=== PATIENT | female | born 1980 | race Caucasian/White ===

== ENCOUNTER 2019-02-09 00:44 | Emergency (ER) | payer SELFPAY ==
[~2019-02-09] VITALS: Ht 162.6 cm; Wt 59.4 kg
--- NOTE | 2019-02-09 00:47 | NUR ---
TO BED 1 BIB EMS C/O ABDOMINAL PAIN AND FEVER X5 HOURS. 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 PT AAOX4 NO ACUTE DISTRESS NOTED, RESP EVEN AND UNLABORED. URINE SAMPLE COLLECTED AND SENT TO LAB. PLACE PT ON CARDIAC MONITORING, CONTINMUOUS POX, O2@2L/NC. PENDING ER MD HANNON.
[2019-02-09] MEDS ORDERED: ONDANSETRON HCL/PF 4 MG/2 ML VIAL ONE (00:59)
[2019-02-09] MEDS ORDERED: MORPHINE SULFATE INJ 4 MG/ML DISP.SYRIN ONE (00:59)
[2019-02-09] MEDS ORDERED: MORPHINE SULFATE INJ 2 MG/ML DISP.SYRIN IV ONE (01:00)
[2019-02-09] MEDS ORDERED: IV NS 0.9% 500 ML BAG IV ONE (01:00)
[2019-02-09] MEDS ORDERED: ONDANSETRON HCL/PF 4 MG/2 ML VIAL IVP ONE (01:00)
[2019-02-09 01:02] LABS: APPEARANCE,URINE Clear (CLEAR); BILIRUBIN,URINE Negative (NEGATIVE); BLOOD, URINE Negative Ery/uL (NEGATIVE); COLOR,URINE Yellow (YELLOW); KETONES,URINE Negative (NEGATIVE); LEUKOCYTE ESTERASE ,URINE Trace (NEGATIVE); NITRITE, URINE Negative (NEGATIVE); PH,URINE 6.5 (5.0-8.0); PROTEIN,URINE Negative (NEGATIVE); UGLUCOSE Negative (NEGATIVE); UROBILINOGEN,URINE 0.2 EU/dL (0.2)
[2019-02-09] MEDS ORDERED: DICYCLOMINE HCL INJ 20 MG/2 ML AMPUL IM ONE ×2 (01:15→01:30)
--- NOTE | 2019-02-09 01:15 | NUR ---
PT MEDICATED ORDERED.
--- NOTE | 2019-02-09 01:18 | NUR ---
PT TRANSPORTED TO RADIOLOGY FOR CT ABD/PELVIS.
[2019-02-09 01:22] LABS: BASOPHILS % (AUTO) 0.5 % (0.0-2.0); EOSINOPHILS % (AUTO) 0.7 % (0.0-6.0); HEMATOCRIT 30 % (33-45); HEMOGLOBIN 9.8 g/dL (11.5-14.8); LYMPHOCYTES # (AUTO) 0.6 /CMM (0.8-4.8); LYMPHOCYTES % (AUTO) 14.1 % (20.0-44.0); MEAN CORPUSCULAR HGB CONC 33 g/dl (31.0-36.0); MEAN CORPUSCULAR VOLUME 75 fL (82-100); MONOCYTES # (AUTO) 0.3 /CMM (0.1-1.30); MONOCYTES % (AUTO) 6.6 % (2.0-12.0); NEUTROPHILS # (AUTO) 3.3 /CMM (1.8-8.9); NEUTROPHILS % (AUTO) 78.1 % (43.0-81.0); PLATELET COUNT (AUTO) 223 /CMM (150-450); RED BLOOD CELL COUNT(AUTO) 3.99 MIL/uL (4.0-5.2); WHITE BLOOD COUNT (AUTO) 4.2 K/uL (4.3-11.0)
[2019-02-09 01:25] LABS: CALCIUM, SERUM 8.8 mg/dL (8.5-10.1); CARBON DIOXIDE 27 mmol/L (21-32); CHLORIDE 105 mmol/L (98-107); CREATININE 0.7 mg/dL (0.6-1.3); GLUCOSE 93 mg/dL (74-106); POTASSIUM 3.6 mmol/L (3.5-5.1); SODIUM SERUM 140 mmol/L (136-145); UREA NITROGEN, BLOOD 14 mg/dL (7-18)
[2019-02-09 01:31] LABS: ALANINE AMINOTRANSFERASE 50 U/L (12-78); ALBUMIN 3.2 g/dL (3.4-5.0); ALKALINE PHOSPHATASE 77 U/L (46-116); ASPARTATE AMINOTRANSFERASE 20 U/L (15-37); BILIRUBIN,TOTAL 0.2 mg/dL (0.2-1.0); LIPASE 185 U/L (73-393); TOTAL PROTEIN, SERUM 6.1 g/dL (6.4-8.2)
--- NOTE | 2019-02-09 01:35 | NUR ---
PT BACK FROM RADIOLOGY. PENDING CT RESULT.
--- NOTE | 2019-02-09 01:37 | NUR ---
PT SCREAMING, REQUESTING TO SPEAK TO ER .
--- NOTE | 2019-02-09 01:39 | NUR ---
BOB AMES AT BEDSIDE TALKING TO PT.
[2019-02-09 01:52] LABS: BACTERIA,URINE Rare /HPF (None Seen); RBC,URINE 0-2 /HPF (0-2); SQUAMOUS EPITHELIAL CELL,UR Rare /HPF (None Seen); WBC,URINE 0-2 /HPF (0-3)
--- NOTE | 2019-02-09 01:57 | NUR ---
NOTED PT ABOUT TO EAT, PT MADE AWARE OF PENDING CT ABD/PELVIS RESULT AND ORDER NPO AT THIS TIME. PT STATES "WELL YOU ARE NOT GONNA GIVE ME PAIN MEDICINE SO I'M GOING TO EAT AND YOU GAVE ME ZOFRAN AND I AM NOT NAUSEOUS ANYMORE" PT CONTINUOUS TO EAT AND REFUSE TO FOLLOW DOCTORS ORDER. ER MD MADE AWARE OF PT EATING.
--- NOTE | 2019-02-09 02:11 | NUR ---
PT REQUESTED MORE WARM BLANKETS, TEMP 98.7. WARM BLANKETS PROVIDED TO PT PER PT REQUEST.
[2019-02-09 02:13] LABS: LYMPHOCYTES % (MANUAL) 10 % (16-48); MONOCYTES % (MANUAL) 6 % (0-11.0); NEUTROPHILS % (MANUAL) 84 (42-76)
[2019-02-09] MEDS ORDERED: LIDOCAINE VISCOUS 2% UD 15 ML UDC ONE (02:29)
[2019-02-09] MEDS ORDERED: MAG HYDROX/AL HYDROX/SIMETH 30 ML UDC PO ONE (02:30)
[2019-02-09] MEDS ORDERED: MAG HYDROX/AL HYDROX/SIMETH 30 ML UDC ONE (02:30)
[2019-02-09] MEDS ORDERED: LIDOCAINE VISCOUS 2% UD 15 ML UDC MM ONE (02:30)
--- NOTE | 2019-02-09 02:36 | NUR ---
PT C/O BEING DIZZY. ER MD MADE AWARE WITH ORDERS RECEIVED.
[2019-02-09] MEDS ORDERED: MECLIZINE HCL 12.5 MG TABLET ONE (02:43)
--- NOTE | 2019-02-09 02:43 | NUR ---
PT REFUSE ANTIVERT. BOB AMES MADE AWARE.
[2019-02-09] MEDS ORDERED: MECLIZINE HCL 12.5 MG TABLET PO ONE (03:00)
--- NOTE | 2019-02-09 03:23 | NUR ---
SL 20G ON THE LAC REMOVED, PRESSURE APPLIED, NO BLEEDING NOTED. ATTEMPTED TO DISCHARGE PT, PT BECAME UPSET, GOT UP AND LEFT ER AMBULATORY WITH FULL STEADY GAIT NOTED. PT REFUSE TO SIGN DISCHARGE INSTRUCTION.
[2019-02-09 05:59] VITALS: BP 127/68
== END 2019-02-09 03:30 | disposition home or self-care (01) ==
LOC: ER 00:47
DX: K20.9 Esophagitis, unspecified (principal); F17.200 Nicotine dependence, unspecified, uncomplicated; Z76.5 Malingerer [conscious simulation]; Z90.89 Acquired absence of other organs; Z90.49 Acquired absence of other specified parts of digestive tract; Z88.6 Allergy status to analgesic agent
CPT/HCPCS: 36415; 71045; 74176; 80048; 80076; 80305; 81001; 83690; 84484; 85025; 85730; 93005; 96374; 99284; J2405; J7040; 81000-TC; J0500; J2270; J8597